=== PATIENT | male | born 1975 | race African-American/Black ===

== ENCOUNTER 2018-10-14 19:11 | Emergency (ER) | payer OTHER, MEDICAID ==
[~2018-10-14] VITALS: Ht 185.4 cm; Wt 110.2 kg
[~2018-10-14 19:11] MED LIST: DIVA500E1 PO; RISP4TAB2 PO
[2018-10-14 19:22] VITALS: BP 123/76
--- NOTE | 2018-10-14 19:26 | NUR ---
PT AMBULATED TO LOBBY
--- NOTE | 2018-10-14 20:29 | NUR ---
PT AMBULATED TO BED #11
--- NOTE | 2018-10-14 20:45 | NUR ---
PT CAME TO ER C/O OF BUG BITES. PT AWAKE AND ALERT. PT C/O OF ITCHING AT INSECT BITE SITES, 5 BUMPS ON LEFT ARM AND 1 BUMBP ON RIGHT ARM. SKIN INTACT. MED HX: ANEMIA. SAFETY MEASURES IN PLACE. WAITING FOR ERMD TO EVALUATE PT.
[2018-10-14 21:59] VITALS: BP 123/76
--- NOTE | 2018-10-14 21:59 | NUR ---
Patient discharged with v/s stable. Written and verbal after care instructions given and explained. Patient alert, oriented and verbalized understanding of instructions. Ambulatory with steady gait. All questions addressed prior to discharge. ID band removed. Patient advised to follow up with PMD. Rx of BENADRYL WAS given. Patient educated on indication of medication including possible reaction and side effects. Opportunity to ask questions provided and answered.
== END 2018-10-14 21:59 | disposition home or self-care (01) ==
LOC: MED 19:11
DX: T63.481A Toxic effect of venom of other arthropod, accidental (unintentional), initial encounter (principal); L29.9 Pruritus, unspecified; D64.9 Anemia, unspecified; Z79.899 Other long term (current) drug therapy; Y92.89 Other specified places as the place of occurrence of the external cause
CPT/HCPCS: 99283

== ENCOUNTER 2018-10-19 20:06 | Emergency (ER) | payer MEDICAID, OTHER ==
[~2018-10-19] VITALS: Ht 188 cm; Wt 111.1 kg
[2018-10-19 20:20] VITALS: BP 158/86
--- NOTE | 2018-10-19 21:36 | NUR ---
PT AMBULATED TO BED 2
--- NOTE | 2018-10-19 21:45 | NUR ---
PT PRESENTED TO ED C/O LOW BACK PAIN [id number] AFTER SLEEING IN A RECLINER CHAIR, IT WENT AWAY AND STARTED AGAIN YESTERDAY AFTER CLEANING OUT GARAGE. TRIED ICY HOT PACK BUT NOT EFFECTIVE. PAIN 9/10 WITH MOVEMENT THAT DOES NOT RADIATE. NO C/O N/V/D. PT AAOX4, RR EVEN UNLABORED, IN NO DISTRESS. WILL CONTINUE TO MONITOR CLOSELY. ED MD DR CORONEL MADE AWARE. PMH ANEMIA
[2018-10-19] MEDS ORDERED: KETOROLAC 30 MG/ML VIAL IM ONE (22:45)
[2018-10-19] MEDS ORDERED: DIAZEPAM 5 MG TAB PO ONE (22:45)
[2018-10-19 23:08] VITALS: BP 128/76
--- NOTE | 2018-10-19 23:08 | NUR ---
Patient discharged with v/s stable. Written and verbal after care instructions given and explained. Patient alert, oriented and verbalized understanding of instructions. Ambulatory with steady gait. All questions addressed prior to discharge. ID band removed. Patient advised to follow up with PMD. Rx of METHOCARBAMOL 500MG AND IBUPROFEN 600MG given. Patient educated on indication of medication including possible reaction and side effects. Opportunity to ask questions provided and answered.
== END 2018-10-19 23:08 | disposition home or self-care (01) ==
LOC: MED 20:06
DX: M62.830 Muscle spasm of back (principal); D64.9 Anemia, unspecified; Z79.899 Other long term (current) drug therapy
CPT/HCPCS: 96372; 99283; J1885

== ENCOUNTER 2023-01-28 11:00 | Emergency (ER) | payer OTHER, MEDICAID ==
[~2023-01-28] VITALS: Ht 185.4 cm; Wt 99.8 kg
[2023-01-28 11:23] VITALS: BP 125/74; PULSE 58; RESP 15; TEMP 97.8; O2SAT 99
[2023-01-28] MEDS ORDERED: KETOROLAC 30 MG/ML VIAL IM ONE (12:55)
[2023-01-28] MEDS ORDERED: ONDANSETRON 4 MG ODT PO ONE (12:55)
[2023-01-28] MEDS ORDERED: ONDA-188 PO (13:57)
[2023-01-28] MEDS ORDERED: IBUP-2213 PO (13:57)
== END 2023-01-28 14:18 | disposition home or self-care (01) ==
LOC: MED 11:00
DX: R51.9 Headache, unspecified (principal); R42 Dizziness and giddiness; R11.0 Nausea; F17.210 Nicotine dependence, cigarettes, uncomplicated; Z98.890 Other specified postprocedural states; Z79.899 Other long term (current) drug therapy; Z79.1 Long term (current) use of non-steroidal anti-inflammatories (NSAID)
CPT/HCPCS: 70450; 82948; 96372; 99285; J1885; Q0162